=== PATIENT | female | born 2000 | race Caucasian/White ===

== ENCOUNTER 2023-10-16 00:45 | Emergency (ER) | payer OTHER ==
[~2023-10-16] VITALS: Ht 167.6 cm; Wt 99.8 kg
[2023-10-16] MEDS ORDERED: ABILIFY MAINTE400 M1 IM (01:41)
[2023-10-16] MEDS ORDERED: QUETIAPINE FUMA5012 PO (01:41)
[2023-10-16] MEDS ORDERED: PROAIR RESPICL90 MCG INH (01:42)
[2023-10-16] MEDS ORDERED: PRAZ2 PO (01:42)
== END 2023-10-16 02:49 | disposition home or self-care (01) ==
LOC: ER 00:45
DX: E86.0 Dehydration (principal); R53.83 Other fatigue; T43.595A Adverse effect of other antipsychotics and neuroleptics, initial encounter; Z79.899 Other long term (current) drug therapy
CPT/HCPCS: 93005; 93010; 99284-25

== ENCOUNTER → 2024-05-01 | Outpatient (CLI) | payer OTHER ==
[~2024-05-01] MED LIST: ABILIFY MAINTE400 M1 IM; PRAZ2 PO; PROAIR RESPICL90 MCG INH; QUETIAPINE FUMA5012 PO
[2024-05-01 20:16] LABS: Alanine Aminotransfer (ALT/SGP 25 U/L (12-78); Albumin, Blood 3.4 g/dL (3.4-5.0); Albumin/Globulin Ratio 0.9 (0.8-1.8); Alk Phos 120 U/L (50-136); Anion Gap 10 mmol/L (3-11); Aspartate Aminotrans (AST/SGOT 19 U/L (12-37); Bilirubin, Total 0.3 mg/dL (0.1-1.0); Blood Urea Nitrogen 12 mg/dL (8-24); Bun/Creatinine Ratio 15.7 (12.0-20.0); CO2, Blood 24 mmol/L (21-32); Calcium, Blood 9.3 mg/dL (8.5-10.1); Chloride, Blood 107 mmol/L (98-108); Cholesterol 167 mg/dL (50-200); Creatinine, Blood 0.76 mg/dL (0.40-1.00); Globulin, Blood 3.9 g/dL (2.2-4.0); Glomerular Filtration Rate 114 (60-); Glucose, Blood 116 mg/dL (70-99); HDL Cholesterol 56 mg/dL (>39); LDL/HDL RATIO 1.6; Low Density Lipoprotein Chol 90 mg/dL (0-110); Sodium, Blood 137 mmol/L (136-145); Total Protein, Blood 7.3 g/dL (6.4-8.2); Triglycerides 103 mg/dL (30-140); Very Low Density Lipoprot Chol 20 mg/dL (6-28)
[2024-05-01 20:18] LABS: BASOPHILS ABSOLUTE AUTO 0.05 K/mm3 (0.00-0.23); BASOPHILS PERCENT AUTO 1 % (0-2); EOSINOPHILS PERCENT AUTO 0 % (0-6); Hematocrit 38.5 % (33.0-51.0); Hemoglobin 12.6 g/dL (11.5-16.0); IMMATURE GRAN ABSOLUTE AUTO 0.04 K/mm3 (0.00-0.10); IMMATURE GRAN PERCENT AUTO 0 % (0-1); LYMPHOCYTES ABSOLUTE AUTO 3.85 K/mm3 (0.84-5.20); LYMPHOCYTES PERCENT AUTO 38 % (21-46); MONOCYTES ABSOLUTE AUTO 0.64 K/mm3 (0.16-1.47); MONOCYTES PERCENT AUTO 6 % (4-13); Mean Corpuscular HGB 24.8 pg (26.0-34.0); Mean Corpuscular HGB Conc 32.7 g/dL (31.5-36.5); Mean Corpuscular Volume 76 fL (80-100); Mean Platelet Volume 10.1 fL (9.1-12.4); NEUTROPHILS ABSOLUTE AUTO 5.48 K/mm3 (1.96-9.15); NEUTROPHILS PERCENT AUTO 54 % (41-73); Platelet Count 374 K/mm3 (150-400); RDW Coefficient Variation 13.9 % (11.7-14.2); RDW Standard Deviation 37.4 fL (35.1-46.3); Red Blood Cell Count 5.09 M/mm3 (3.80-5.20); White Blood Cell Count 10.06 K/mm3 (4.00-11.30)
== END ==
LOC: LAB SHORT 18:26 → LAB 18:26
PROVIDERS: Family Medicine
DX: R73.9 Hyperglycemia, unspecified (principal); I10 Essential (primary) hypertension; E78.2 Mixed hyperlipidemia
CPT/HCPCS: 80053; 80061; 83036; 85025